=== PATIENT | male | born 1980 | race Caucasian/White ===

== ENCOUNTER 2024-08-05 10:48 | Outpatient (CLI) | payer BC, SELFPAY | END 2024-08-05 10:49 | disposition home or self-care (01) | LOC: FBOREF 10:49 | PROVIDERS: PCP Family Medicine; Visit Provider Family Medicine | DX: R53.83 Other fatigue (principal) | CPT/HCPCS: 84403 ==

== ENCOUNTER 2025-02-19 07:50 | Outpatient (CLI) | payer BC, SELFPAY | END 2025-02-19 07:51 | disposition home or self-care (01) | LOC: NFLDREF 02-23 17:30 | PROVIDERS: PCP Family Medicine; Referring Provider Family Medicine; Visit Provider Family Medicine | DX: E29.1 Testicular hypofunction (principal) | CPT/HCPCS: 84403 ==

== ENCOUNTER 2025-06-29 09:46 | Outpatient (CLI) | payer BC, SELFPAY | END 2025-06-29 09:47 | disposition home or self-care (01) | PROVIDERS: PCP Family Medicine; Visit Provider Family Medicine | DX: Z00.00 Encounter for general adult medical examination without abnormal findings (principal) | CPT/HCPCS: 80048; 80061; 84403; 85025 ==